=== PATIENT | female | born 1995 | race Two or more races ===

== ENCOUNTER 2020-08-08 15:56 | Emergency (ER) | payer OTHER, BC ==
[2020-08-08 16:07] VITALS: BP 127/79; PULSE 75; TEMP 98.8; BMI 21.1
[2020-08-08 16:52] LABS: BASO % 0.3 % (0-2.0); EOS % 1.8 % (0-4.5); HEMATOCRIT 36.9 % (32.4-45.2); HEMOGLOBIN 12.6 GM/dL (10.7-15.3); LYMPH % 40.1 % (8-40); MCH 29.1 pg (25.7-33.7); MCHC 34.1 g/dl (32.0-36.0); MEAN CELL VOLUME 85.6 fl (80-96); MEAN PLT VOLUME 8.5 fl (7.5-11.1); MONO % 5.4 % (3.8-10.2); NEUT % 52.4 % (42.8-82.8); PLATELET COUNT 295 K/MM3 (134-434); RBC 4.31 M/mm3 (3.60-5.2); RDW 14.6 % (11.6-15.6); WHITE BLOOD COUNT 6.8 K/mm3 (4.0-10.0)
[2020-08-08 18:08] LABS: HIV INTERPRETATION NEGATIVE (NEGATIVE)
== END 2020-08-08 17:01 | disposition home or self-care (01) ==
LOC: JERFT 15:56
DX: S61.237A Puncture wound without foreign body of left little finger without damage to nail, initial encounter (principal); W46.1XXA Contact with contaminated hypodermic needle, initial encounter
CPT/HCPCS: 36415; 85025; 86317; 86704; 86780; 86803; 87340; 87389; 99283-25